=== PATIENT | male | born 1970 | race Caucasian/White ===

== ENCOUNTER 2018-04-26 19:46 | Inpatient (IN) | payer MEDICAID, OTHER ==
[~2018-04-26] VITALS: Ht 170.2 cm; Wt 95.8 kg
[~2018-04-26 19:46] MED LIST: ASPI-1160 PO; FURO-151 PO; LISI2.5T47 PO; Metoprolol Tartrate PO
[2018-04-26] MEDS ORDERED: SODIUM CHLORIDE 0.9% 1,000 ML IV ONE (20:07)
[2018-04-26] MEDS ORDERED: LORAZEPAM 2MG/ML CPJ IV ONE (20:15)
[2018-04-26] MEDS ORDERED: ASPIRIN 325MG TABLET PO ONE (20:15)
[2018-04-26 20:38] LABS: BASOPHILS % 1.4 % (0.0-2.0); CHLORIDE 109 mEq/L (98-107); HEMATOCRIT. 39.9 % (42.0-52.0); HEMOGLOBIN. 13.4 g/dL (14.0-18.0); LYMPHOCYTES % 20.6 % (20.0-50.0); MEAN CORPUSCULAR HEMOGLOBIN 30.8 pg (28.0-32.0); MEAN CORPUSCULAR VOLUME 91.6 fL (80.0-94.0); MEAN PLATELET VOLUME 7.9 fl (7.4-10.4); MONOCYTES % 6.9 % (2.0-8.0); NEUTROPHILS % 70.1 % (40.0-76.0); PLATELET 447 x1000/uL (130-400); RED BLOOD CELL COUNT 4.36 mill/uL (4.7-6.1); RED CELL DISTRIBUTION WIDTH 15.8 % (11.6-14.6)
[2018-04-26] MEDS ORDERED: ASPIRIN 325MG TABLET PO SCH (20:45)
[2018-04-26] MEDS ORDERED: FUROSEMIDE 40MG/4ML VIAL IVP NR (21:15)
[2018-04-26] MEDS ORDERED: NA PHOS,M-B/NA PHOS,DI-BA ENEMA 118ML PR PRN (21:30)
[2018-04-26] MEDS ORDERED: NITROGLYCERIN 0.4MG TABLET SL SL PRN (21:30)
[2018-04-26] MEDS ORDERED: KETOROLAC 15MG/ML VIAL IV PRN (21:30)
[2018-04-26] MEDS ORDERED: MAGNESIUM/ALUMINUM HYDROXIDE/SIMETHICONE 30ML UDC PO PRN (21:30)
[2018-04-26] MEDS ORDERED: CLONIDINE 0.1MG TABLET PO PRN (21:30)
[2018-04-26] MEDS ORDERED: ONDANSETRON HCL 4MG/2ML INJ IV PRN (21:30)
[2018-04-26] MEDS ORDERED: IPRATROPIUM/ALBUTEROL 0.5-3(2.5)MG/3ML NEB INH PRN (21:30)
[2018-04-26] MEDS ORDERED: DOCUSATE SODIUM 100MG CAPSULE PO PRN (21:30)
[2018-04-26] MEDS ORDERED: LORAZEPAM 1MG TABLET PO PRN (21:30)
[2018-04-26] MEDS ORDERED: ACETAMINOPHEN 325MG TABLET PO PRN (21:30)
[2018-04-26] MEDS ORDERED: ZOLPIDEM TARTRATE 5MG TABLET PO PRN (21:30)
[2018-04-26] MEDS ORDERED: GUAIFENESIN 200MG/10ML SUGAR FREE UDC PO PRN (21:30)
[2018-04-26] MEDS ORDERED: MIDAZOLAM HCL 2 MG/2 ML VIAL IV ONE (22:15)
[2018-04-26] MEDS ORDERED: IOHEXOL-350 100 ML BOTTLE ONE (22:40)
[2018-04-27] VITALS (7 sets, daily range): BP systolic 102–137; BP diastolic 62–102
[2018-04-27] MEDS: DILTIAZEM HCL 60MG TABLET PO SCH ×5 (01:27→23:37)
[2018-04-27] MEDS ORDERED: ENOXAPARIN 100MG/ML SYR SUBCUT SCH (06:00)
[2018-04-27 07:37] LABS: INR 1.2; PROTHROMBIN TIME 12.3 sec (9.1-11.1)
[2018-04-27 07:59] LABS: *AMPHETAMINES SCREEN URINE PRESUMTIVE POSITIVE (NEGATIVE); *BARBITURATES SCREEN URINE NEGATIVE (NEGATIVE); *BENZODIAZEPINES SCREEN URINE PRESUMTIVE POSITIVE (NEGATIVE); *COCAINE SCREEN URINE NEGATIVE (NEGATIVE); METHADONE URINE SCREEN NEGATIVE (NEGATIVE); OPIATES URINE SCREEN NEGATIVE (NEGATIVE)
[2018-04-27 08:00] LABS: CANNABINOID URINE SCREEN NEGATIVE (NEGATIVE); PHENCYCLIDINE URINE SCREEN NEGATIVE (NEGATIVE)
[2018-04-27] MEDS ORDERED: ASPIRIN 325MG EC TABLET PO SCH (09:00)
[2018-04-27] MEDS: LISINOPRIL 20MG TABLET PO SCH ×2 (10:17→20:57)
[2018-04-27] MEDS: FUROSEMIDE 40MG/4ML VIAL IVP SCH ×2 (10:17→20:57)
[2018-04-27] MEDS: SPIRONOLACTONE 25MG TABLET PO SCH ×2 (10:18→20:57)
[2018-04-27] MEDS: POTASSIUM CHLORIDE 20MEQ TABLET SR PO SCH (11:59)
[2018-04-27 12:38] LABS: CREATINE KINASE MB FRACTION 5.7 ng/mL (0.5-3.6)
[2018-04-27] MEDS ORDERED: ATORVASTATIN CALCIUM 10MG TABLET PO SCH (21:00)
[2018-04-28] VITALS: BP 121/85
[2018-04-28 03:59] VITALS: BP 122/85
[2018-04-28] MEDS: DILTIAZEM HCL 60MG TABLET PO SCH ×2 (05:36→12:00)
[2018-04-28 08:00] VITALS: BP 105/83
[2018-04-28] MEDS: LISINOPRIL 20MG TABLET PO SCH (08:49)
[2018-04-28] MEDS: FUROSEMIDE 40MG/4ML VIAL IVP SCH (08:49)
[2018-04-28] MEDS: SPIRONOLACTONE 25MG TABLET PO SCH (08:49)
[2018-04-28] MEDS ORDERED: ENOXAPARIN 40MG/0.4ML SYR SUBCUT SCH (09:00)
[2018-04-28] MEDS ORDERED: ASPIRIN 81MG EC TABLET PO SCH (09:00)
[2018-04-28] MEDS: POTASSIUM CHLORIDE 20MEQ TABLET SR PO SCH (09:02)
[2018-04-28 10:19] VITALS: BP 105/83
[2018-04-28 12:15] VITALS: BP 143/113
== END 2018-04-28 13:11 | disposition home or self-care (01) | DRG 190 ==
LOC: ER 19:46 → 8WST 20:56 → EDBEDREQTM 20:59 → EDBEDREQ 20:59 → ENRESERV 23:24
PROVIDERS: ADMIT Internal Medicine; ATTEND Internal Medicine
DX: I21.4 Non-ST elevation (NSTEMI) myocardial infarction (principal); I50.43 Acute on chronic combined systolic (congestive) and diastolic (congestive) heart failure; I42.9 Cardiomyopathy, unspecified; I11.0 Hypertensive heart disease with heart failure; D63.8 Anemia in other chronic diseases classified elsewhere; R74.0 Nonspecific elevation of levels of transaminase and lactic acid dehydrogenase [LDH]; F19.10 Other psychoactive substance abuse, uncomplicated; F15.10 Other stimulant abuse, uncomplicated; F17.210 Nicotine dependence, cigarettes, uncomplicated; I25.10 Atherosclerotic heart disease of native coronary artery without angina pectoris; Z91.14 Patient's other noncompliance with medication regimen; Z95.5 Presence of coronary angioplasty implant and graft; Z95.810 Presence of automatic (implantable) cardiac defibrillator; Z79.82 Long term (current) use of aspirin
CPT/HCPCS: 36415; 71045; 71275; 80061; 80305; 82550; 82553; 83036; 83735; 83880; 84484; 85379; 93005; 93306; 93970; 96361; 96374; 96375; 99291; G0482; J1650; J1940; J2060; J2250; J7030; Q9967